=== PATIENT | male | born 1965 | race Caucasian/White ===

== ENCOUNTER 2023-06-27 11:45 | Emergency (ER) | payer OTHER, SELFPAY ==
[2023-06-27 11:50] VITALS: BP 171/79; PULSE 81; RESP 18; TEMP 36.7; O2SAT 97
[2023-06-27 14:42] LABS: Basophils Absolute Auto 0.1 K/mm3 (0.0-0.1); Basophils Percent Auto 0.8 % (0.2-1.2); Eosinophils Absolute Auto 0.3 K/mm3 (0-0.3); Eosinophils Percent Auto 4.1 % (0-4.4); Hematocrit 46.4 % (42.0-52.0); Hemoglobin 15.3 g/dL (14.0-18.0); Immature Granulocyte Absolute 0.05 K/mm3 (0.00-0.031); Immature Granulocyte Percent A 0.6 % (0-0.5); Lymphocytes Absolute Auto 1.62 K/mm3 (0.9-3.2); Lymphocytes Percent Auto 20.6 % (18.3-44.2); Mean Corpuscular Hemoglobin 29.4 pg (26-34); Mean Corpuscular Volume 89.1 fl (80-100); Mean Platelet Volume 11.2 fl (7.4-10.4); Monocytes Absolute Auto 0.7 K/mm3 (0.1-0.6); Monocytes Percent Auto 9.3 % (2.6-8.5); Neutrophils Absolute Auto 5.1 K/mm3 (1.3-6.7); Neutrophils Percent Auto 64.6 % (45.5-73.1); Platelet Count Result 230 k/mm3 (150-375); Red Blood Count 5.21 M/mm3 (4.6-6.20); Red Cell Distribution Width 13.7 % (11.5-14.5); White Blood Count 7.9 K/mm3 (4.5-10.0)
[2023-06-27 14:52] LABS: Alanine Aminotransferase 45 U/L (6-50); Albumin Level 4.3 g/dL (3.5-5.1); Alkaline Phosphatase 86 U/L (38-126); Anion Gap 7 mmol/L (8-16); Aspartate Amino Transferase 29 U/L (17-59); Bilirubin,Total 0.8 mg/dL (0.2-1.3); Blood Urea Nitrogen 11 mg/dL (9-20); Calcium 9.2 mg/dL (8.4-10.2); Carbon Dioxide 31 mmol/L (22-30); Chloride 101 mmol/L (98-107); Estimated CRCL calculation 66 ml/min; Estimated Glomerular Filt Rate > 60; Glucose 100 mg/dL (65-110); Lipase 986 U/L (23-300); Potassium 4.4 mmol/L (3.4-5.0); Sodium 139 mmol/L (137-145)
[2023-06-27 14:53] VITALS: BP 158/87; PULSE 68; RESP 16; O2SAT 95
[2023-06-27 15:00] LABS: Appearance Urine Clear (Clear); Bacteria Urine None Seen /hpf; Bilirubin Urine Negative (Negative); Blood Urine 1+ (Negative); Color Urine Yellow (Yellow); Glucose Urine UA Negative (Negative); Ketones Urine Negative (Negative); Leukocyte Esterase Ur Negative LEU/UL (Negative); Nitrate Urine Negative (Negative); Protein Urine Trace mg/dL (Negative); Specific Grav Ur 1.027 (1.001-1.035); Squamous Epithelial Cell Urine None seen /hpf (Few); WBC Urine 0-5 /hpf; pH Urine 5.5 (5.0-9.0)
[2023-06-27 15:06] LABS: Add Urine Microscopic? YES
--- NOTE | 2023-06-27 15:08 | PC.NURSE ---
cd disc from [facility] care taken to radiology to have scanned into our system.
--- NOTE | 2023-06-27 15:38 | ED.ABDPAIN ---
HPI - Abdominal Pain General Chief Complaint: Abdominal Pain Stated Complaint: lesion on pancreas, gall stones, ct yesterday Time Seen by Provider: 06/27/23 14:20 History of Present Illness HPI narrative: Patient is a 57-year-old male presenting with abdominal pain. Patient states that for the last couple of days he has had epigastric and left upper quadrant pain. He was seen at an urgent care yesterday and a CT abdomen pelvis was obtained. This showed evidence of a small mass in the pancreatic head. His pain was well controlled and he was able to go home with Vicodin. States that his pain is still well controlled. No nausea or vomiting, fevers, lightheadedness. States he has been eating normally. He called his PCP today who advised that he come to the ER for evaluation. States that he is leaving the country in a couple of days. Denies further complaints or concerns. Related Data Allergies Allergy/AdvReac Type Severity Reaction Status Date / Time No Known Allergies Allergy Unverified 04/27/19 07:32 Review of Systems Review of Systems: All systems reviewed & are unremarkable except as noted in HPI and below Exam Narrative: GENERAL: Well-appearing and in no acute distress. Pleasant and cooperative HEAD: Normocephalic, atraumatic. EYES: PERRLA and EOMI. ENT: Mucous membranes moist. NECK: Supple. CHEST: No respiratory distress. HEART: Regular rate and rhythm ABDOMEN: Soft, +LUQ/epigastric tenderness, no guarding or rebound EXTREMITIES: Normal range of motion. No edema. SKIN: Warm, dry, no rash. NEURO: No focal deficits. Alert and oriented x3. PSYCH: Normal mood and affect. Course Vital Signs Vital signs: Vital Signs Temperature 98.1 F 06/27/23 11:50 Pulse Rate 81 06/27/23 11:50 Respiratory Rate 18 06/27/23 11:50 Blood Pressure 171/79 H 06/27/23 11:50 Pulse Oximetry 97 06/27/23 11:50 Oxygen Delivery Room Air 06/27/23 11:50 Temperature 98.1 F 06/27/23 11:50 Pulse Rate 68 06/27/23 18:15 Respiratory Rate 16 06/27/23 18:15 Blood Pressure 161/94 H 06/27/23 18:15 Pulse Oximetry 98 06/27/23 18:15 Oxygen Delivery Room Air 06/27/23 11:50 MDM - Abdominal Pain MDM Narrative Medical decision making narrative: Patient is a 57-year-old male presenting with abdominal pain. Vitals are stable. Exam remarkable for the above. Blood work with a lipase of 986. No other abnormalities noted. The patient brought the read for his CT abdomen pelvis from urgent care. It is showing a 1.5 cm hypodense lesion at the pancreatic head/uncinate. There is also evidence of pancreatitis. MRI is recommended. Discussed with the patient that the MRI will need to be obtained on an outpatient basis. Patient denies any acute complaints today. States that his pain is well controlled. He is tolerating p.o. intake. He has not been nauseated at all. Feel he is safe for outpatient management. I spoke with Dr. Obando, patient's PCP, who agrees with discharge and outpatient management. Appropriate return precautions were given. Patient and his are agreeable with this plan. Discharged in stable condition. Differential Diagnosis Differential diagnosis: Likely abdominal pain, constipation, diverticulitis, gastroenteritis and pancreatitis Medical Records Attestation: I reviewed the patient's medical records. Lab Data Attestation: I reviewed the patient's lab results. 06/27/23 14:34 06/27/23 14:34 Labs: Lab Results 06/27/23 06/27/23 Range/Units 14:34 14:50 WBC 7.9 (4.5-10.0) K/mm3 RBC 5.21 (4.6-6.20) M/mm3 Hgb 15.3 (14.0-18.0) g/dL Hct 46.4 (42.0-52.0) % MCV 89.1 (80-100) fl MCH 29.4 (26-34) pg MCHC 33.0 (32-36) g/dl RDW 13.7 (11.5-14.5) % Plt Count 230 (150-375) k/mm3 MPV 11.2 H (7.4-10.4) fl Immature Gran % (Auto) 0.6 H (0-0.5) % Neut % (Auto) 64.6 (45.5-73.1) % Lymph % (Auto) 20.6 (18.3-44.2) % [place]
[2023-06-27 18:15] VITALS: BP 161/94; PULSE 68; RESP 16; O2SAT 98
== END 2023-06-27 18:23 | disposition home or self-care (01) ==
PROVIDERS: Emergency Provider Emergency Medicine
DX: K85.90 Acute pancreatitis without necrosis or infection, unspecified (principal); K86.89 Other specified diseases of pancreas
CPT/HCPCS: 36415; 80053; 81001; 83690; 85025; 99283

== ENCOUNTER 2023-11-08 05:55 | Observation (INO) | payer OTHER, SELFPAY ==
[2023-11-08] VITALS (33 sets, daily range): BP systolic 120–182; BP diastolic 57–86; PULSE 72–87; RESP 10–20; TEMP 36.2–37.3; O2SAT 94–100; BMI 28.4; BMI 27.1
--- NOTE | ~2023-11-08 | XR_ITS ---
Clinical Indication: Chest pressure PA and lateral views of the chest: Comparison: None Findings: Right-sided Mediport in place. The lungs are clear, without evidence of focal consolidation or pleural effusion. Cardiomediastinal silhouette is within normal limits. Bones and soft tissues a re unremarkable. Impression: Clear lungs. Right-sided Mediport. Reviewed, dictated and finalized at location . [employer] MAKER AND FITTER Impression: Clear lungs. Right-sided Mediport.
--- NOTE | ~2023-11-08 | US_ITS ---
Limited Abdominal Sonogram: Real-time sonographic imaging of the right upper quadrant was performed. Clinical History: Cholecystitis Findings: The liver appears normal with no evidence of mass lesion or bile duct dilatation. Main por anjali vein demonstrates normal direction of flow. The gallbladder is well distended, and appears normal with no evidence of gallstone or wall thickening. The common bile duct measures 4 mm. The visualize d pancreas, aorta, and IVC are unremarkable. Right kidney measures 11.1 cm in length, without hydrone phrosis. Impression: No significant abnormality seen. Reviewed, dictated and finalized at location . UCT DEVELOPMENT SPECIALIST Impression: No significant abnormality seen.
--- NOTE | ~2023-11-08 | CT_ITS ---
Clinical Indication: Pancreatic cancer CT Scan of the Chest, Abdomen, and Pelvis with Contrast: Technique: Contiguous sections were acquired throughout the chest, abdomen, and pelvis after intraven ous administration of 100 cc of Omnipaque 350. Dose reduction technique was used on this scan by uti lizing automated exposure control and iterative reconstruction technique. The dose-length product (DL P) was 666.55 mGy-cm. Findings: There is no evidence of any significant mediastinal, hilar or axillary lymphadenopathy. The mediastin al soft tissues and vascular structures appear normal. There is no evidence of pleural or pericardial effusion. There is mild to moderate emphysema in the upper lobes. No pulmonary nodule evident. The liver, spleen, gallbladder, adrenals and kidneys are within normal limits. Suspected 1.4 cm subtl e, ill-defined hypodense mass at the pancreatic head. There are atherosclerotic calcifications of the aorta. No evidence of aortic aneurysm. No lymphadenopathy. No bowel obstruction or bowel wall thickening. There is no evidence to suggest acute appendicitis. Urinary bladder is unremarkable. Prostate gland and seminal vesicles are unremarkable. No ascites. Impression: Probable 1.4 cm subtle, ill-defined hypodense pancreatic head mass. This would be consistent with his tory of pancreatic carcinoma. No evidence of metastatic disease. Mild to moderate upper lobe emphysema. Reviewed, dictated and finalized at location . ESCENT PSYCHIATRIST Impression: Probable 1.4 cm subtle, ill-defined hypodense pancreatic head mass. This would be consistent with history of pancreatic carcinoma. No evidence of metastatic disease. Mild to moderate upper lobe emphysema.
--- NOTE | 2023-11-08 05:55 | ECG_ITS ---
Measurements Intervals [place] Rate: 85 P: 58 W[place]: 163 QRS: 29 QRSD: 94 T: 26 QT: 278 QTc: 332 Interpretive Statements SINUS RHYTHM NONSPECIFIC T-WAVE ABNORMALITY BORDERLINE ECG NO PREVIOUS ECG AVAILABLE FOR COMPARISON Electronically Signed On 11-08-2023 7:16:55 FILAMENT SHAPER by Tyler Brandon M.D.
[2023-11-08 06:18] LABS: Hemoglobin 12.5 g/dL (14.0-18.0); Mean Corpuscular HGB Conc 33.8 g/dl (32-36); Mean Corpuscular Hemoglobin 30.1 pg (26-34); Mean Corpuscular Volume 89.2 fl (80-100); Mean Platelet Volume 10.1 fl (7.4-10.4); Platelet Count Result 125 k/mm3 (150-375); Red Blood Count 4.15 M/mm3 (4.6-6.20); Red Cell Distribution Width 15.7 % (11.5-14.5); White Blood Count 15.6 K/mm3 (4.5-10.0)
[2023-11-08 06:28] LABS: Alanine Aminotransferase 467 U/L (6-50); Alkaline Phosphatase 310 U/L (38-126); Anion Gap 8 mmol/L (8-16); Aspartate Amino Transferase 292 U/L (17-59); Blood Urea Nitrogen 13 mg/dL (9-20); Calcium 9.4 mg/dL (8.4-10.2); Carbon Dioxide 26 mmol/L (22-30); Chloride 106 mmol/L (98-107); Estimated CRCL calculation 69 ml/min; Estimated Glomerular Filt Rate > 60; Glucose 124 mg/dL (65-110); Lipase 341 U/L (23-300); Potassium 4.2 mmol/L (3.4-5.0); Sodium 140 mmol/L (137-145)
[2023-11-08 06:29] LABS: INR 0.9; Partial Thromboplastin Time 27.9 SECONDS (22.3-36.8); Prothrombin Time 12.9 Seconds (11.1-14.7)
[2023-11-08 06:34] LABS: Band Neutrophils Percent 7 % (0-6); Eosinophils Absolute Manual 0.46 K/mm3 (0.02-0.5); Eosinophils Percent Manual 3 % (0-4); Lymphocytes Absolute Manual 3.43 K/mm3 (1.1-4.5); Metamyelocytes Percent 5 %; Monocytes Absolute Manual 0.15 K/mm3 (0.1-0.90); Monocytes Percent Manual 1 % (3-9); Myelocytes Percent 3 %; Neutrophils Absolute Manual 10.29 K/mm3 (1.3-6.7); Neutrophils Percent Manual 59 % (46-73); Total Cells Counted 100
[2023-11-08 06:35] LABS: Anisocytosis 1+ (NORMAL); Hypochromasia 1+ (NORMAL); Large Platelets Present; Macrocytosis 1+ (NORMAL); Ovalocytes 1+ (NORMAL); Schistocytes 1+ (NORMAL)
[2023-11-08 06:36] LABS: Atypical Lymphocytes Present
[2023-11-08 06:39] LABS: Troponin I < 0.012 ng/mL (0.000-0.034)
--- NOTE | 2023-11-08 07:17 | PC.NURSE ---
Report given to MATTEO Gandhi at this time.
--- NOTE | 2023-11-08 07:29 | ED.CHESTPAIN ---
HPI - Chest Pain General Chief Complaint: Chest Pain Stated Complaint: cp Time Seen by Provider: 11/08/23 07:28 Source: patient and family Mode of arrival: ambulatory History of Present Illness HPI narrative: 4 years old white male came to the emergency room with pain epigastric, retrosternal started while sleeping, we came up from sleep at 4:30 a.m., throbbing, radiating to the back, lasted for a while, currently is asymptomatic. History of hypertension, hyperlipidemia, pancreatic cancer in the middle of chemotherapy right now diagnosis June 2023 he denies any shortness of breath, fever, chills, nausea, vomiting Related Data Allergies Allergy/AdvReac Type Severity Reaction Status Date / Time fosaprepitant AdvReac Rash Verified 11/08/23 07:09 [From Emend (fosaprepitant)] Review of Systems Review of Systems: All systems reviewed & are unremarkable except as noted in HPI and below Exam Narrative: General appearance: Well-developed, well-nourished Skin: Normal color Head: Normocephalic, nontraumatic Eyes: Clear conjunctiva ENT: Oropharynx normal, ears normal, nose normal Neck: Supple, nontender Chest and respiratory: Airway patent, no respiratory distress, no accessory muscle use Heart: Regular rate/rhythm Abdomen: Soft, nontender, no organomegaly, quiet bowel sounds Vascular: Normal peripheral pulses, normal capillary refill. Musculoskeletal: Normal range of motion, nontender back Neurologic: Alert and oriented ?3, TEXTILE BROKER is normal as tested, no gross motor deficit Course Reevaluation(s) Reevaluation #1: Currently is asymptomatic Date: 11/08/23 Time: 08:03 Consultations Consultation #1: [facility], REQUESTED NPO, IV FLUID ADMIT OBSERVATION FOR POSSIBLE PANCREATITIS. HE IS TELLING ME THAT PATIENT HAD HISTORY OF MILD PANCREATITIS IN THE PAST. HE AGREED THAT LIVER ENZYMES ARE MORE ELEVATED THAN LAST VISIT., AGREED WITH THE PLAN TO GET ULTRASOUND OF THE GALLBLADDER. Date: 11/08/23 Time: 09:42 Consultation #2: DR. BRAY Date: 11/08/23 Time: 10:08 Vital Signs Vital signs: Vital Signs Temperature 37.3 C 11/08/23 06:12 Pulse Rate 82 11/08/23 06:12 Respiratory Rate 15 11/08/23 06:12 Blood Pressure 163/63 H 11/08/23 06:12 Pulse Oximetry 97 11/08/23 06:12 Oxygen Delivery Room Air 11/08/23 06:12 Temperature 37.3 C 11/08/23 06:12 Pulse Rate 74 11/08/23 12:05 Respiratory Rate 12 11/08/23 12:05 Blood Pressure 162/81 H 11/08/23 12:05 Pulse Oximetry 96 11/08/23 10:17 Oxygen Delivery Room Air 11/08/23 06:56 MDM - Chest Pain MDM Narrative Medical decision making narrative: Patient came to the ED with epigastric, retrosternal chest discomfort wake him up from sleep at 4:30 a.m., resolve in less than 1 hour, currently patient is asymptomatic Blood workup today showed elevated WBC 15.6 with left shift, elevated liver enzymes which was normal on November 05, 2023. CT chest, abdomen and pelvis with IV contrast showed no acute abnormalities. Patient is not running any fever or nausea or vomiting, Elevated liver enzymes is my concern at this time, cardiac score is 4, positive family history of coronary artery disease, history of hypertension and hyperlipidemia and smoking. EKG showed nonspecific T-wave abnormalities, cardiac enzymes are negative twice Cholecystitis is a possibility, right upper quadrant ultrasound ordered AND SHOWED NO ACUTE ABNORMALITY. ADMIT TO HOSPITALIST FOR CHEST PAIN AND ELEVATED LIVER ENZYMES. DR. BRAY WAS CONSULTED. Differential Diagnosis Differential diagnosis: Likely other (Progression of pancreatic cancer, cholecystitis, coron
[2023-11-08] MEDS: SODIUM CHLORIDE 0.9% IV 1,000 ML 999 ML IV CONT (08:25)
[2023-11-08 09:16] LABS: Troponin I < 0.012 ng/mL (0.000-0.034)
[2023-11-08] MEDS: PIPERACILLN/TAZ 3.375GM/NS50ML 3.375 GM/50 ML BAG IVPB ×3 (11:20→21:23)
[2023-11-08 12:31] LABS: Troponin I < 0.012 ng/mL (0.000-0.034)
--- NOTE | 2023-11-08 16:05 | PM.IMHP ---
H&P: HPI History of Present Illness Date/Time: 11/08/23 16:05 Chief Complaint: Epigastric Pain Narrative: 58 y/o M presents here with epigastric pain with PMH of HTN, HLD, pancreatitis, former smoker, and pancreatic cancer (on chemo, dx in Jun). Patient presented here with epigastric/lower sternal pain rated 7/10 that began this morning around 0400. Pain will patient from sleep. He describes it as throbbing with radiation into his lower back. No associated N/V/D, fever, chills, or body aches. Mild achiness to BLE. Patient reports the discomfort resolved without intervention shortly after arrival to the ED. Patient reports that urine was discolored last night - tea colored. No dysuria, frequency, or hematuria. Last chemo treatment for known pancreatic cancer (goes to [facility]) was scheduled for 11/05. Patient's WBC count was too low and he was newly hypertensive at this visit. Started on 3-4 days of Zarxio with subsequent improvement in WBCs. Started on a low-dose antihypertensive. Also reporting diffuse [place] - mild, constant, and 3/10. Initial VS: HR 82, RR 15, BP 163/61, 97% on room air. ED workup showed moderate leukocytosis with WBC of 15.6, HGB 12.5, AST 292, ALT of 467, alk-phos 310, and lipase 341. CXR showed right-sided MediPort. CT of the chest/abd/pelvis showed probable 1.4 cm subtle ill-defined hypodense pancreatic head mass consistent with history of pancreatic carcinoma, no evidence of metastatic disease, mild to moderate upper lobe emphysema. Upper quadrant US showed no significant abnormality. ED spoke with patient's Oncology team at [facility] who requested we admit the patient NPO, US of gallbladder be completed, provide IV fluids, and observation for possible pancreatitis. Patient has history of mild pancreatitis previously. Review of Systems Review of Systems: All systems reviewed & are unremarkable except as noted in HPI and below PMFSH Past Medical History Medical History (Updated 11/08/23 @ 21:26 by Dalia Brenner APRN) HLD (hyperlipidemia) HTN (hypertension) Pancreatic cancer Pancreatitis Surgical History Surgical History (Updated 11/08/23 @ 19:22 by Dalia Brenner APRN) No significant past surgical history Family History Family History Father Cerebrovascular accident Mother Hypertension Social History Social History Smoking packs per day: 1 Smoking cigarettes per day: 20.0 Years smoked: 30 Smoking pack-years: 30.00 Smoking status: Former smoker Tobacco type: cigarettes Smoking end date: 10/07/09 Alcohol intake: never Substance use: never Do You Feel Safe in your Home?: Yes Lack of Transportation: No Lack of Food: Never True Current Housing: I Have Housing Concerned About Future Housing: No Difficulty Paying Gas/Electric Bills: No Difficulty Paying for Meds: No Currently Unemployed: No Education: High School Diploma/GED Difficulty w/ Childcare or Family Care: No Spiritual care concerns: No Meds Home Medications and Allergies Home Medications Medication Instructions Recorded Confirmed Type atorvastatin 80 mg tablet 80 mg PO DAILY 11/08/23 11/08/23 History chorionic gonadotropin, human See Rx Instructions .Route .COMPLEX 11/08/23 11/08/23 History 10,000 unit IM powder for solution (Pregnyl) eszopiclone 3 mg tablet 1.5 mg PO HS 11/08/23 11/08/23 History lidocaine-prilocaine 2.5 %-2.5 % See Rx Instructions .Route .COMPLEX 11/08/23 11/08/23 History topical cream lisinopril 5 mg tablet 5 mg PO DAILY 11/08/23 11/08/23 History sildenafil 100 mg tablet 100 mg PO DAILY PRN .prior to 11/08/23 11/08/23 History sexual intercourse. tadalafil 5 mg tablet 5 mg PO DAILY 11/08/23 11/08/23 History Allergies Allergy/AdvReac Type Severity Reaction Status Date / Time fosaprepitant AdvReac Rash Verified 11/08/23 07:09 [From Darshan (
--- NOTE | 2023-11-08 16:13 | ADMGEN ---
This patient, Deneen Rivas, was admitted to IMU Room 211-01. Patient/family oriented to hospital policies and general routines including ID bracelet, bed and alarms, visiting hours, pain management, procedures, bathroom and other care routines, personal items, smoking policy, room service/diet, and visiting hours. Information on how to activate the Rapid Response Team has been discussed. Patient/Family are encouraged to report perceived risks to care and to ask questions if they do not understand what they are told or what they should do.
[2023-11-08] MEDS: SODIUM CHLORIDE 0.9% IV 1,000 ML 150 ML IV CONT (21:21)
[2023-11-08] MEDS: diphenhydrAMINE HCl INJ 50 MG/ML VIAL 25 MG IV PUSH (21:22)
[2023-11-08] MEDS: IBUPROFEN 400 MG TABLET PO (21:23)
[2023-11-08 21:47] LABS: Appearance Urine Clear (Clear); Bilirubin Urine Negative (Negative); Blood Urine Negative (Negative); Color Urine Yellow (Yellow); Glucose Urine UA Negative (Negative); Ketones Urine Negative (Negative); Leukocyte Esterase Ur Negative LEU/UL (Negative); Nitrate Urine Negative (Negative); Protein Urine Negative (Negative); Specific Grav Ur 1.023 (1.001-1.035); Urobilinogen Urine 0.2 mg/dL (<2.0)
[2023-11-08 22:03] LABS: Add Urine Microscopic? NO
[2023-11-08] MEDS: DOCUSATE SODIUM 100 MG CAPSULE PO (22:45)
[2023-11-09] VITALS (19 sets, daily range): BP systolic 146–197; BP diastolic 57–95; PULSE 68–88; RESP 15–24; TEMP 36.1–36.9; O2SAT 94–99
--- NOTE | 2023-11-09 01:30 | PHAR ---
HOME MEDICATION, Eszopiclone 3 mg tablet, TAKE ONE TABLET ONCE DAILY IMMEDIATELY BEFORE BEDTIME. LAST SCRIPT. PATIENT NEEDS APPOINTMENT FOR REFILLS. VERIFIED IN PHARMACY - [place] COLOR: DARK-BLUE SHAPE: ALGAACIQ IMPRINT: L 36 IMPRINT CODE DESCRIPTION: TABLET DEBOSSED WITH L 36 ON ONE SIDE AND PLAIN ON THE OTHER SIDE. FORM: ORAL TABLET [id number]: STRIP OF 100 , BOTTLE OF 1000 , BOTTLE OF 100 [facility] CODE: [id number] - NONBENZODIAZEPINE HYPNOTICS NDC: [id number] [id number] [facility]: [id number] EXCIPIENTS: CALCIUM PHOSPHATE, DIBASIC (DIHYDRATE) ; CELLULOSE, MICROCRYSTALLINE ; CROSCARMELLOSE SODIUM ; FD&C BLUE NO. 2 ; HYPROMELLOSE ; LACTOSE ; MAGNESIUM STEARATE ; POLYETHYLENE GLYCOL ; SILICON DIOXIDE, COLLOIDAL ; TITANIUM DIOXIDE ; TRIACETIN REGULATORY STATUS: SCHEDULE IV AVAILABILITY: [place] PRODUCT ID [id number] CONTACT: [employer]
[2023-11-09] MEDS: SODIUM CHLORIDE 0.9% IV 1,000 ML 150 ML IV CONT ×3 (02:47→18:24)
[2023-11-09] MEDS: PIPERACILLN/TAZ 3.375GM/NS50ML 3.375 GM/50 ML BAG IVPB ×4 (04:13→22:04)
[2023-11-09 05:51] LABS: Alanine Aminotransferase 281 U/L (6-50); Albumin Level 3.5 g/dL (3.5-5.1); Alkaline Phosphatase 263 U/L (38-126); Anion Gap 3 mmol/L (8-16); Aspartate Amino Transferase 118 U/L (17-59); Bilirubin,Total 0.6 mg/dL (0.2-1.3); Blood Urea Nitrogen 10 mg/dL (9-20); Calcium 8.5 mg/dL (8.4-10.2); Carbon Dioxide 28 mmol/L (22-30); Chloride 109 mmol/L (98-107); Estimated CRCL calculation 63 ml/min; Estimated Glomerular Filt Rate > 60; Glucose 92 mg/dL (65-110); Lipase 370 U/L (23-300); Potassium 3.9 mmol/L (3.4-5.0); Sodium 140 mmol/L (137-145)
[2023-11-09 05:56] LABS: Hematocrit 33.9 % (42.0-52.0); Hemoglobin 11.1 g/dL (14.0-18.0); Mean Corpuscular HGB Conc 32.7 g/dl (32-36); Mean Corpuscular Hemoglobin 29.8 pg (26-34); Mean Corpuscular Volume 90.9 fl (80-100); Mean Platelet Volume 10.5 fl (7.4-10.4); Platelet Count Result 137 k/mm3 (150-375); Red Blood Count 3.73 M/mm3 (4.6-6.20); Red Cell Distribution Width 16.1 % (11.5-14.5); White Blood Count 13.3 K/mm3 (4.5-10.0)
[2023-11-09 07:08] LABS: Band Neutrophils Percent 5 % (0-6); Lymphocytes Absolute Manual 2.39 K/mm3 (1.1-4.5); Metamyelocytes Percent 5 %; Monocytes Absolute Manual 0.53 K/mm3 (0.1-0.90); Monocytes Percent Manual 4 % (3-9); Myelocytes Percent 2 %; Neutrophils Absolute Manual 9.44 K/mm3 (1.3-6.7); Neutrophils Percent Manual 66 % (46-73); Total Cells Counted 100
[2023-11-09 07:09] LABS: Anisocytosis 1+ (NORMAL); Atypical Lymphocytes Present; Platelet Estimate Adequate (Adequate); Schistocytes None Seen (NORMAL)
[2023-11-09] MEDS: ASPIRIN 81 MG CHEWABLE TABLET PO (09:50)
[2023-11-09] MEDS: lisinopriL 5 MG TABLET PO (09:51)
--- NOTE | 2023-11-09 10:34 | PM.IMPN ---
Progress Note: A&P Assessment and Plan (1) HTN (hypertension): Code(s): I10 - Essential (primary) hypertension Status: Acute (2) Epigastric pain: Code(s): R10.13 - Epigastric pain Status: Acute (3) Pancreatic cancer: Qualifiers: Pancreatic malignancy location: head of pancreas Qualified Code(s): C25.0 - Malignant neoplasm of head of pancreas Code(s): C25.9 - Malignant neoplasm of pancreas, unspecified Status: Acute (4) History of pancreatic cancer: Code(s): Z85.07 - Personal history of malignant neoplasm of pancreas Status: Acute (5) Chest pain: Code(s): R07.9 - Chest pain, unspecified Status: Acute (6) Elevated liver enzymes: Code(s): R74.8 - Abnormal levels of other serum enzymes Status: Acute Plan (1) Epigastric pain: ?Code(s): R10.13 - Epigastric pain ?Status:?Acute ?Assessment and Plan: - CXR: right-sided Mediport. - CT of the chest/abdomen/pelvis: Probable 1.4 cm subtle, ill-defined hypodense pancreatic head mass. This would be consistent with history of pancreatic carcinoma. No evidence of metastatic disease. Mild to moderate upper lobe emphysema. - Upper Quadrant US: no significant abnormality seen. - troponin negative x3 - EKG:? Sinus rhythm, nonspecific T-wave abnormality, borderline EKG, with no previous for comparison. - DDx: worsening pancreatic cancer, pancreatitis, GERD, PA, or cholecystitis. - ED team spoke with patient's oncologist at [facility].? They recommended NPO and IV fluids as well as a ultrasound of patient's gallbladder.? Ultrasound showed no acute abnormalities.? They voiced concerns for pancreatitis despite elevation in lipase being mild, has had mild pancreatitis previously. - GI consulted, awaiting recs. - trend lipase and LFTs - NPO initially, since pain has resolved for majority of day will trial clear liquid diet this evening - IV fluids (NS 150 mL/hr) and pain control. antiemetics prn. -UA w/reflex added, some discoloration to urine last night 2/3 patient has no abdomen pain, nausea vomiting, tolerated clear diet well, advanced to solid diet (2) Pancreatic cancer: ?Qualifiers: ?Pancreatic malignancy location:?head of pancreas? Qualified Code(s):?C25.0 - Malignant neoplasm of head of pancreas ?Code(s): C25.9 - Malignant neoplasm of pancreas, unspecified ?Status:?Acute ?Assessment and Plan: -see above -continue to trend labs -WBC was low on Tue 11/05 and newly hypertensive at chemo treatment - started on antihypertensive daily and 3-4 doses of Zarxio for low WBC. -WBC count now improved/mildly elevated (3) Elevated liver enzymes: ?Code(s): R74.8 - Abnormal levels of other serum enzymes ?Status:?Acute ?Assessment and Plan: -see above -trend LFTs -holding home statin /, liver enzymes are trending down, follow-up CMP (4) HTN (hypertension): ?Code(s): I10 - Essential (primary) hypertension ?Status:?Acute ?Assessment and Plan: -recent diagnosis, 11/05 -started on lisinopril 5 mg p.o. daily, continue -monitor Plan Home Meds/Chronic Conditions - continued zofran PRN - continued tadalafil daily. hold? Viagra. - insomnia: Continue home Lunesta - HLD:hold home statin Diet: trial of clear liquids GI Prophylaxis: not currently indicated DVT Prophylaxis: SCDs and enoxaparin Lines: pIV Code Status: Full Code Subjective Date/time seen: 11/09/23 10:34 Interval history: I saw and examined the patient today. Patient feels better today, patient tolerated clear diet, denies nausea vomiting. Afebrile, blood pressure stable, labs reviewed Exam Narrative: GENERAL: Pleasant, in no acute distress. Well-nourished. - EYES: EOMI. Anicteric. - HENT: Moist mucous membranes. - LUNGS: Clear to auscultation bilaterally, no wheezing, rhonchi, or rales. - CARDIOVASCULAR: Regular rate and rhythm. No murmur. N
[2023-11-09] MEDS: hydrALAZINE HCL 20 MG/ML VIAL IV PUSH (17:33)
--- NOTE | 2023-11-09 18:24 | WPDGICN ---
Assessment and Plan Assessment and plan (1) Pancreatic cancer: Qualifiers: Pancreatic malignancy location: head of pancreas Qualified Code(s): C25.0 - Malignant neoplasm of head of pancreas Code(s): C25.9 - Malignant neoplasm of pancreas, unspecified Status: Acute Assessment and Plan: he is seeing hem-onc soon he is due to have another treatment hopefully home tomorrow (2) Epigastric pain: Code(s): R10.13 - Epigastric pain Status: Acute Assessment and Plan: resolved, could have been mild pancreatitis (had it before) (3) Pancreatitis: Code(s): K85.90 - Acute pancreatitis without necrosis or infection, unspecified Status: Acute (4) Elevated liver enzymes: Code(s): R74.8 - Abnormal levels of other serum enzymes Status: Acute Assessment and Plan: trending down this is due to pancreatic cancer GI Consult Note Consult date/time: 11/09/23 18:24 Reason for consult: pancreatic cancer, chest pain HPI: Deneen Rivas is a 58 year old male with PMH of HTN, pancreatitis, former smoker, and pancreatic cancer (on chemo with last dose about 2 weeks ago- had to skip last dose few days ago because low wbc and started on Zarxio with subsequent improvement in WBCs, dx in Jun after had EUS at another institution, never ERCP). He came here with epigastric/lower sternal pain rated 7/10 started day of admission, describes as throbbing with radiation into his lower back. No associated N/V/D, fever, chills. ED blood work noted leukocytosis with WBC of 15.6, HGB 12.5, AST 292, ALT of 467, alk-phos 310 and normal bili, and lipase 341.- liver enzymes better today? CXR showed right-sided MediPort. CT of the chest/abd/pelvis showed probable 1.4 cm subtle ill-defined hypodense pancreatic head mass consistent with history of pancreatic carcinoma, no evidence of metastatic disease. He was npo but then able to eat without any problem and pain is gone. He is hoping to leave tomorrow. Review of Systems Constitutional: Constitutional: Denies chills Eyes: Eyes: Denies blurry vision ENT: Reports Normal hearing present Cardiovascular: Cardiovascular: Reports chest pain Respiratory: Respiratory: Denies cough Gastrointestinal: Gastrointestinal: Reports abdominal pain and Denies nausea Genitourinary: Genitourinary: Denies dysuria Musculoskeletal: Musculoskeletal: Denies neck pain Integumentary/Breasts: Skin/Breast: Denies rash Neurologic: Denies confusion Psychiatric: Psychiatric: Denies behavioral changes [facility] Past Medical History Medical History (Updated 11/09/23 @ 18:28 by Hernandez Martinez MD) HLD (hyperlipidemia) HTN (hypertension) Pancreatic cancer Pancreatitis Surgical History Surgical History (Updated 11/08/23 @ 19:22 by Dalia Brenner APRN) No significant past surgical history Family History Family History Father Cerebrovascular accident Mother Hypertension Social History Social History Smoking packs per day: 1 Smoking cigarettes per day: 20.0 Years smoked: 30 Smoking pack-years: 30.00 Smoking status: Former smoker Tobacco type: cigarettes Smoking end date: 10/07/09 Alcohol intake: never Substance use: never Do You Feel Safe in your Home?: Yes Lack of Transportation: No Lack of Food: Never True Current Housing: I Have Housing Concerned About Future Housing: No Difficulty Paying Gas/Electric Bills: No Difficulty Paying for Meds: No Currently Unemployed: No Education: High School Diploma/GED Difficulty w/ Childcare or Family Care: No Spiritual care concerns: No Meds Home Medications and Allergies Home Medications Medication Instructions Recorded Confirmed Type atorvastatin 80 mg tablet 80 mg PO DAILY 11/08/23 11/08/23 History chorionic gonadotropin, human See
--- NOTE | 2023-11-09 19:29 | PC.NURSE ---
VS trend reviewed with Dr. Mitchell with a T.O.R.B Hydralazine 20mg PO Now x 1 dose. D/C transfer to [facility] et keep on IMCU. All order entered B/P decreased per VS flow sheet. The pt denied distress during elevated B/P. Tele was removed prior to transfer et placed back on the pt once status changed back to IMCU
--- NOTE | 2023-11-09 21:33 | PC.NURSE ---
While completing fall audit it is noted patient does not have bed alarm on. Explained reason for patient being a fall risk and explained why bed alarm should be on. Patient is a moderate risk due to high risk medication and equipment use. Patient agitated and refuses bed alarm. States it has not been on and he has been getting to pee. Reiterated reasoning and safety precautions to patient who is alert and oriented; he states understanding and continues refusal of bed alarm. Nurse Josefina Vega made aware of refusal.
[2023-11-09] MEDS: IBUPROFEN 400 MG TABLET PO (22:05)
[2023-11-10] VITALS (7 sets, daily range): BP systolic 147–151; BP diastolic 72–81; PULSE 60–81; RESP 16–20; TEMP 36.1–36.3; O2SAT 95–97
[2023-11-10] MEDS: SODIUM CHLORIDE 0.9% IV 1,000 ML 150 ML IV CONT ×2 (01:32→09:22)
[2023-11-10] MEDS: PIPERACILLN/TAZ 3.375GM/NS50ML 3.375 GM/50 ML BAG IVPB ×2 (04:29→09:17)
[2023-11-10] MEDS: lisinopriL 5 MG TABLET PO (08:25)
[2023-11-10] MEDS: ASPIRIN 81 MG CHEWABLE TABLET PO (08:25)
[2023-11-10 09:00] LABS: Hematocrit 36.6 % (42.0-52.0); Mean Corpuscular HGB Conc 32.8 g/dl (32-36); Mean Corpuscular Hemoglobin 29.6 pg (26-34); Mean Corpuscular Volume 90.4 fl (80-100); Mean Platelet Volume 10.1 fl (7.4-10.4); Platelet Count Result 167 k/mm3 (150-375); Red Blood Count 4.05 M/mm3 (4.6-6.20); Red Cell Distribution Width 16.1 % (11.5-14.5); White Blood Count 8.6 K/mm3 (4.5-10.0)
[2023-11-10 09:12] LABS: Alanine Aminotransferase 217 U/L (6-50); Albumin Level 3.8 g/dL (3.5-5.1); Alkaline Phosphatase 220 U/L (38-126); Anion Gap 9 mmol/L (8-16); Aspartate Amino Transferase 71 U/L (17-59); Bilirubin,Total 0.5 mg/dL (0.2-1.3); Blood Urea Nitrogen 8 mg/dL (9-20); Calcium 8.8 mg/dL (8.4-10.2); Carbon Dioxide 25 mmol/L (22-30); Chloride 107 mmol/L (98-107); Estimated CRCL calculation 69 ml/min; Estimated Glomerular Filt Rate > 60; Glucose 182 mg/dL (65-110); Potassium 3.7 mmol/L (3.4-5.0); Sodium 141 mmol/L (137-145)
--- NOTE | 2023-11-10 10:05 | PM.DS ---
DS: Admitting Diagnosis Discharge Date November 10 2023 Admitting Diagnosis Chest pain DS: Discharge Diagnosis Discharge Diagnosis (1) Epigastric pain: Code(s): R10.13 - Epigastric pain Status: Acute (2) Chest pain: Code(s): R07.9 - Chest pain, unspecified Status: Acute (3) Elevated liver enzymes: Code(s): R74.8 - Abnormal levels of other serum enzymes Status: Acute (4) Pancreatic cancer: Qualifiers: Pancreatic malignancy location: head of pancreas Qualified Code(s): C25.0 - Malignant neoplasm of head of pancreas Code(s): C25.9 - Malignant neoplasm of pancreas, unspecified Status: Acute (5) History of pancreatic cancer: Code(s): Z85.07 - Personal history of malignant neoplasm of pancreas Status: Acute (6) HTN (hypertension): Code(s): I10 - Essential (primary) hypertension Status: Acute Plan (1) Epigastric pain: ?Code(s): R10.13 - Epigastric pain ?Status:?Acute ?Assessment and Plan: - CXR: right-sided Mediport. - CT of the chest/abdomen/pelvis: Probable 1.4 cm subtle, ill-defined hypodense pancreatic head mass. This would be consistent with history of pancreatic carcinoma. No evidence of metastatic disease. Mild to moderate upper lobe emphysema. - Upper Quadrant US: no significant abnormality seen. - troponin negative x3 - EKG:? Sinus rhythm, nonspecific T-wave abnormality, borderline EKG, with no previous for comparison. - DDx: worsening pancreatic cancer, pancreatitis, GERD, PA, or cholecystitis. - ED team spoke with patient's oncologist at [facility].? They recommended NPO and IV fluids as well as a ultrasound of patient's gallbladder.? Ultrasound showed no acute abnormalities.? They voiced concerns for pancreatitis despite elevation in lipase being mild, has had mild pancreatitis previously. - GI consulted, awaiting recs. - trend lipase and LFTs - NPO initially, since pain has resolved for majority of day will trial clear liquid diet this evening - IV fluids (NS 150 mL/hr) and pain control. antiemetics prn. -UA w/reflex added, some discoloration to urine last night 2/3 patient has no abdomen pain, nausea vomiting, tolerated clear diet well, advanced to solid diet (2) Pancreatic cancer: ?Qualifiers: ?Pancreatic malignancy location:?head of pancreas? Qualified Code(s):?C25.0 - Malignant neoplasm of head of pancreas ?Code(s): C25.9 - Malignant neoplasm of pancreas, unspecified ?Status:?Acute ?Assessment and Plan: -see above -continue to trend labs -WBC was low on Tue 11/05 and newly hypertensive at chemo treatment - started on antihypertensive daily and 3-4 doses of Zarxio for low WBC. -WBC count now improved/mildly elevated (3) Elevated liver enzymes: ?Code(s): R74.8 - Abnormal levels of other serum enzymes ?Status:?Acute ?Assessment and Plan: -see above -trend LFTs -holding home statin 2/3, liver enzymes are trending down, follow-up CMP (4) HTN (hypertension): ?Code(s): I10 - Essential (primary) hypertension ?Status:?Acute ?Assessment and Plan: -recent diagnosis, 11/05 -started on lisinopril 5 mg p.o. daily, continue -monitor Plan Home Meds/Chronic Conditions - continued zofran PRN - continued tadalafil daily. hold? Viagra. - insomnia: Continue home Lunesta - HLD:hold home statin Diet: trial of clear liquids GI Prophylaxis: not currently indicated DVT Prophylaxis: SCDs and enoxaparin Lines: pIV Code Status: Full Code DS: Summary Hospital Course Reason for hospitalization: Chest pain Hospital Course: Admitted November 08 with epigastric to lower substernal pain. History of pancreatic cancer for which she is receiving chemotherapy. EKG was unremarkable with sinus rhythm and minimal nonspecific T-wave changes. Chest x-ray was negative for acute process. States right upper quadrant ultrasound was unremarkable. CT abd
--- NOTE | 2023-11-10 11:10 | PC.NURSE ---
Education given on discharge instruction. The pt displays verbal understanding through verbal demonstration Denies pain et no distress noted on exit from the campus. The pt was escorted to private vehicle per w/c all belongings returned et Home medication returned to the pt a total of Lunesta 14 pills given to pt with a second nurse at the bedside Valdez FELIPE.
== END 2023-11-10 11:00 | disposition home or self-care (01) ==
LOC: ANHED 13:11 → ANHIMU 15:12
PROVIDERS: Emergency Medicine; Student in an Organized Health Care Education/Training Program; Admitting Provider Hospitalist; Emergency Provider Emergency Medicine; Visit Provider Internal Medicine
DX: R10.13 Epigastric pain (principal); R07.9 Chest pain, unspecified; R74.8 Abnormal levels of other serum enzymes; C25.9 Malignant neoplasm of pancreas, unspecified; I10 Essential (primary) hypertension; J43.9 Emphysema, unspecified; R51.9 Headache, unspecified; N52.9 Male erectile dysfunction, unspecified; E78.5 Hyperlipidemia, unspecified; Z87.19 Personal history of other diseases of the digestive system; Z87.891 Personal history of nicotine dependence; Z79.60 Long term (current) use of unspecified immunomodulators and immunosuppressants; Z79.899 Other long term (current) drug therapy
CPT/HCPCS: 36415; 71046; 71260; 74177; 76705; 80053; 81003; 83690; 84484; 85025; 85027; 85610; 85730; 93005; 96361; 96365; 96366; 96375; 96376; 99285; A9270; G0378; J0360; J1200; J2543; J7030; Q9967